=== PATIENT | female | born 1975 | race Caucasian/White ===

== ENCOUNTER 2017-12-24 05:27 | Day surgery (SDC) | payer OTHER ==
[~2017-12-24] VITALS: Ht 167.6 cm; Wt 81.6 kg
--- NOTE | ~2017-12-24 | O ---
[address] [address] OPERATIVE REPORT Name: VIDAL BOBBY Room #: DEP [facility].#: [id number] Admission: 12/24/17 Attend Phys: Suresh Love MD Discharge: 12/24/17 Date of : 75 Report #: [id number] THIS REPORT FOR: //name// CC: Tae Love DATE OF SERVICE: 12/24/2017 SERVICE: Orthopedics. FACILITY: [place]. SURGEON: Dr. Love. MOLDER CLOSED MOLDS: None. PREOPERATIVE DIAGNOSES: 1. Left hip pain. 2. Status post left total hip arthroplasty. 3. Left hip iliopsoas tendonitis with tendon impingement from acetabular component. POSTOPERATIVE DIAGNOSES: 1. Left hip pain. 2. Status post left total hip arthroplasty. 3. Left hip iliopsoas tendonitis with tendon impingement from acetabular component. PROCEDURE: 1. Left hip diagnostic arthroscopy with extensive debridement. 2. Left hip arthroscopic iliopsoas tendon lengthening. COMPLICATIONS: None. DRAINS: None. SPECIMENS: None. ANESTHESIA: General. FINDINGS: 1. Stable prosthesis. 2. No signs of infection. 3. Synovitis and fraying of the undersurface of the iliopsoas tendon with successful tendon lengthening. [address] [address] OPERATIVE REPORT Name: VIDAL BOBBY [id number] Admission: 12/24/17 Attend Phys: Suresh Love MD Discharge: 12/24/17 Date of : 75 Report #: [id number] HISTORY AND INDICATIONS: The patient is a 42-year-old female who is status post left total hip arthroplasty for a reported history of avascular necrosis. Her hip joint pain did well after the surgery, but she continued to have deep anterior hip pain, worse with flexion activities. She climbs stairs one step at a timely, only lifting her right leg and trailing the left behind due to pain in the hip with flexion. She had a diagnostic injection within the iliopsoas tendon sheath and had partial improvement. She was referred to the clinic specifically for consideration of iliopsoas tendon lengthening. Her exam was consistent with these findings, and we had a discussion preoperatively about the possibility for pain relief recognizing that either incomplete or no relief both possible scenarios postoperatively, however, arthroscopic management being a better option in most cases than revision arthroplasty was still indicated based on her presentation and she did wish to proceed with the surgery. Risks, benefits, alternatives and indications of surgery were discussed with her in detail. Risks include but not limited to pain, bleeding, infection, injury to nerves or blood vessels, persistent pain despite surgical intervention, failure of the procedure, need for further surgery including revision arthroplasty as well as complications related to anesthesia such as stroke, heart attack, pulmonary complications, thromboembolic disease and . Despite these risks, she wished to proceed. PROCEDURE IN DETAIL: After left lower extremity was correctly identified as the operative extremity, the patient was taken to the operating room where general anesthesia was induced without complication. She was padded appropriately. Prophylactic antibiotics were administered at appropriate time. Bilateral lower extremities were placed in traction boots. No traction was utilized during the procedure. Left leg was prepped and draped in standard sterile fashion. Time-out procedure was performed. Utilizing the C-arm, an anterolateral viewing portal was established followed by mid anterior working portal, utilizing triangulation and C-arm. The instrumentation was oriented at the neck of the femoral component and then the anterior scarring was resected allowing visualization of the stem, the proximal femur, the neck, the femoral head, the acetabular polyethylene liner and the acetabular component. These all appeared to be normal without any evidence of wear. There was no incarcerated tissue within the articulation, and there was no evidence of infection. The shaver was used to resect the scar tissue working up over the proximal aspect of the hip, allowing access to the acetabular component. The hip was taken through a full range of motion and was found to be stable; however, as the hip was ranged particularly through flexion and extension, the iliopsoas tendon could be seen abrading over the acetabular rim component. This location was confirmed in the C-arm as well, ensuring that it was in fact the iliopsoas tendon and then it was followed distally down to the lesser trochanter. The electrocautery was then used to perform the iliopsoas tendon lengthening at the level of the joint to avoid complete transection and then the shaver was used to trim the redundant ends of the tendon stump distally [address] [address] OPERATIVE REPORT Name: VIDAL BOBBY Room #: [place] [facility] [place] [id number] Admission: 12/24/17 Attend Phys: Suresh Love MD Discharge: 12/24/17 Date of : 75 Report #: [id number] and proximally. The muscle fibers were still visualized, intact and traversing distally. After this was completed, the hip was taken through range of motion again and there was no further impingement noted. The synovitis in this vicinity was resected as well with the shaver. Arthroscopic effusion was drained, instruments were removed from the hip. The portal sites were closed with deep followed by superficial Monocryl stitches. Sterile dressing was applied. The patient was awaken from anesthesia and taken to recovery room in stable condition. There were no complications and all counts were recorded as correct. <ELECTRONICALLY SIGNED> By: Suresh Love MD 12/24/172010 1807 [id number] Suresh Love MD /nt
[~2017-12-24 05:27] MED LIST: ABILIFY30 MG PO; ALPRAZOLAM1 MG PO; GABAPENTIN PO; LITHIUM CARBON450 MG PO; MOBIC15 MG PO; OMEPRAZOLE40 MG PO; VITAMIN D250000 UNIT PO; VYVANSE50 MG PO
[2017-12-24 06:32] VITALS: BP 108/73
[2017-12-24 06:36] LABS: HEMATOCRIT 34.3 % (37.0-47.0); MCH 26.8 pg (26.0-34.0); MCHC 32.2 g/dL (28.0-37.0); MCV 83.3 fL (80.0-100.0); RBC 4.12 mil/uL (4.20-5.00); RDW 15.1 % (10.5-14.5); WBC 6.8 thou/uL (4.0-11.0)
[2017-12-24 09:34] VITALS: BP 108/73
== END 2017-12-24 10:20 | disposition home or self-care (01) ==
LOC: TBA 05:27 → OR 05:27 → TBA 05:29 → OR 10:20
PROVIDERS: Orthopaedic Surgery Sports Medicine
DX: M76.12 Psoas tendinitis, left hip (principal); M25.852 Other specified joint disorders, left hip; Z96.642 Presence of left artificial hip joint; F31.9 Bipolar disorder, unspecified; D64.9 Anemia, unspecified; F17.210 Nicotine dependence, cigarettes, uncomplicated; K21.9 Gastro-esophageal reflux disease without esophagitis; Z90.49 Acquired absence of other specified parts of digestive tract; Z98.890 Other specified postprocedural states; Z88.8 Allergy status to other drugs, medicaments and biological substances; Z79.899 Other long term (current) drug therapy; Z88.0 Allergy status to penicillin; Z98.84 Bariatric surgery status
CPT/HCPCS: 50010; 50101; 50386; 51320; 51538; 52282; 56524; 56527; 57092